=== PATIENT | female | born 1995 | race Caucasian/White ===

== ENCOUNTER 2018-06-02 13:21 | Outpatient (CLI) | payer MEDICAID ==
[~2018-06-02] VITALS: Ht 175.3 cm; Wt 93.6 kg
[2018-06-02 13:37] VITALS: BP 111/61
== END 2018-06-02 14:23 | disposition home or self-care (01) ==
LOC: LDOP 13:21
PROVIDERS: ATTEND Obstetrics & Gynecology
DX: O09.33 Supervision of pregnancy with insufficient antenatal care, third trimester (principal); Z3A.32 32 weeks gestation of pregnancy
CPT/HCPCS: 59025; 99211; G0463